=== PATIENT | female | born 1955 | race Caucasian/White ===

== ENCOUNTER 2019-05-24 10:16 | Emergency (ER) | payer OTHER ==
[~2019-05-24] VITALS: Wt 54.5 kg
[2019-05-24] MEDS ORDERED: PANTOPRAZOLE 40 MG INJ IV STA (10:21)
--- NOTE | 2019-05-24 11:17 | ERD ---
ER Documentation Chief Complaint Chief Complaint HEMATEMESIS THIS AM WITH NO BLACK STOOLS. NO CP OR SOB, GOOD COLOR. HPI 63-year-old female presents for evaluation of hematemesis. She has a history of gastric ulcers, her last endoscopy was 1.5 years ago. She normally filed follows up with her primary care doctor, she takes omeprazole 40 mg daily, she denies history of cirrhosis, states she had one single episode. Has currently resolved. Denies fever ROS All systems reviewed and are negative except as per history of present illness. Medications Home Meds Reported Medications Cyclobenzaprine Hcl* (Cyclobenzaprine Hcl*) 5 Mg Tablet, 5 MG PO Q8H PRN for NEEDED, #60 TAB 05/24/19 Levothyroxine Sodium* (Synthroid*) 75 Mcg Tablet, 75 MCG PO BEFORE BREAKFAST, #30 TAB 05/24/19 Omeprazole* (Omeprazole*) 20 Mg Capsule.dr, 20 MG PO DAILY PRN for PRN, #30 CAP 05/24/19 Allergies Allergies: Coded Allergies: No Known Allergy (Unverified , 05/24/19) PMhx/Soc History of Surgery: Yes (ANKLE) Hx Miscellaneous Medical Probl: Yes (GASTRITIS, THYROID) Hx Alcohol Use: No Hx Substance Use: No Hx Tobacco Use: No Smoking Status: Former smoker Physical Exam Vitals Vital Signs Date Temp Pulse Resp B/P (MAP) Pulse Ox O2 O2 Flow FiO2 Time Delivery Rate 05/24/19 98.4 58 17 111/55 98 Room Air 11:48 (73) 05/24/19 Nasal 2 10:43 Cannula 05/24/19 98.0 55 18 95/51 (66) 98 10:23 Physical Exam Const: No acute distress Head: Atraumatic Eyes: Normal Conjunctiva ENT: Normal External Ears, Nose and Mouth. Neck: Full range of motion. No meningismus. Resp: Clear to auscultation bilaterally Cardio: Regular rate and rhythm, no murmurs Abd: Soft, non tender, no rebound or guarding, non distended. Normal bowel sounds Skin: No petechiae or rashes Back: No midline or flank tenderness Ext: No cyanosis, or edema Neur: Awake and alert Psych: Normal Mood and Affect Result Diagram: 05/24/19 1040 05/24/19 1040 Results 24 hrs Laboratory Tests Test 05/24/19 10:40 White Blood Count 4.0 10^3/ul Red Blood Count 3.32 10^6/ul Hemoglobin 11.5 g/dl Hematocrit 33.5 % Mean Corpuscular Volume 100.9 fl Mean Corpuscular Hemoglobin 34.6 pg Mean Corpuscular Hemoglobin Concent 34.3 g/dl Red Cell Distribution Width 13.6 % Platelet Count 88 10^3/UL Mean Platelet Volume 11.3 fl Immature Granulocytes % 0.300 % Neutrophils % 60.1 % Lymphocytes % 29.2 % Monocytes % 7.6 % Eosinophils % 2.0 % Basophils % 0.8 % Nucleated Red Blood Cells % 0.0 /100WBC Immature Granulocytes # 0.010 10^3/ul Neutrophils # 2.4 10^3/ul Lymphocytes # 1.2 10^3/ul Monocytes # 0.3 10^3/ul Eosinophils # 0.1 10^3/ul Basophils # 0.0 10^3/ul Nucleated Red Blood Cells # 0.0 10^3/ul Prothrombin Time 18.1 Sec Prothrombin Time Ratio 1.4 INR International Normalized Ratio 1.49 Activated Partial Thromboplast Time 31.5 Sec Sodium Level 142 mmol/L Potassium Level 3.7 mmol/L Chloride Level 113 mmol/L Carbon Dioxide Level 25 mmol/L Anion Gap 4 Blood Urea Nitrogen 13 mg/dl Creatinine 0.54 mg/dl Est Glomerular Filtrat Rate mL/min > 60 mL/min Glucose Level 105 mg/dl Calcium Level 7.7 mg/dl Total Bilirubin 1.2 mg/dl Direct Bilirubin 0.00 mg/dl Indirect Bilirubin 1.2 mg/dl Aspartate Amino Transf (AST/SGOT) 46 IU/L Alanine Aminotransferase (ALT/SGPT) 36 IU/L Alkaline Phosphatase 110 IU/L Troponin I < 0.012 ng/ml Total Protein 5.4 g/dl Albumin 2.5 g/dl Globulin 2.90 g/dl Albumin/Globulin Ratio 0.86 Lipase 294 U/L Current Medications Medications Dose Sig/Basilia Start Time Status Last (Trade) Ordered Route PRN Stop Time Admin Dose Reason Admin 40 mg ONCE STAT 05/24/19 DC 05/24/19 Pantoprazole IV 10:21 05/24/19 11:13 (Protonix 10:23 Iv) Procedures/MDM Is a 63-year-old female presents for evaluation of hematemesis. Patient remained he medically stable in the ED, she was given Protonix IV, she had no signs or symptoms of cirrhosis, and has no history of esophageal varices that she did not require ceftriaxone or octreotide. Given episode of hematemesis, as well as prior history of gastric ulcers, patient will be admitted for further evaluation, and GI consult. She is stable to be transferred to [facility]. I spoke with Dr. Burgos, who will accept patient for transfer. Departure Diagnosis: Primary Impression: Hematemesis Nausea presence: unspecified Qualified Codes: K92.0 - Hematemesis Condition: Stable SHAN NATION MD May 24, 2019 11:17
[2019-05-24] MEDS ORDERED: OMEP20CA16 PO (12:03)
[2019-05-24] MEDS ORDERED: LEVO75TA84 PO (12:03)
[2019-05-24] MEDS ORDERED: CYCL5TAB PO (12:04)
[2019-05-24] MEDS ORDERED: ONDANSETRON 4 MG INJ IV STA ×2 (12:49→14:10)
[2019-05-24] MEDS ORDERED: ONDANSETRON 4 MG INJ ONE (12:50)
[2019-05-24 16:55] VITALS: BP 130/60; PULSE 62; RESP 17
== END 2019-05-24 17:19 | disposition short-term general hospital (02) ==
LOC: E/R 10:16
DX: K92.0 Hematemesis (principal); R06.02 Shortness of breath; Z87.891 Personal history of nicotine dependence
CPT/HCPCS: 36415; 71045; 80053; 83690; 84484; 85025; 85610; 85730; 86850; 86870; 86900; 86901; 86902; 93005; 96374; 96375; C9113; J2405; Z7502